=== PATIENT | male | born 1960 | race Caucasian/White ===

== ENCOUNTER 2018-03-31 13:34 | Emergency (ER) | payer OTHER ==
[~2018-03-31] VITALS: Ht 170.1 cm; Wt 158.8 kg
[~2018-03-31 13:34] MED LIST: CIPRO500 MG PO; DO NOT PROFILE T1 EA DEN; Flagyl500 M1 PO; GLUCOSAMINE & C1 CA2 PO; NEURONTIN300 MG PO
[2018-03-31] MEDS ORDERED: POLYSPORIN OINT15 GM T (13:43)
== END 2018-03-31 14:15 | disposition home or self-care (01) ==
LOC: ED 13:34
DX: T23.271A Burn of second degree of right wrist, initial encounter (principal); Z79.899 Other long term (current) drug therapy; X16.XXXA Contact with hot heating appliances, radiators and pipes, initial encounter; Y93.89 Activity, other specified; Y92.89 Other specified places as the place of occurrence of the external cause; Y99.8 Other external cause status

== ENCOUNTER 2018-05-08 17:24 | Inpatient (IN) | payer OTHER ==
[~2018-05-08] VITALS: Ht 170.2 cm; Wt 155.7 kg
--- NOTE | ~2018-05-08 | EKG ---
[place], [place] ELECTROCARDIOGRAM REPORT NAME: SHADIA KENT UNIT #: [id number] ROOM: 512 DOCTOR: JOSE DRAFT REPORT BIRTHDATE: [birth year] [facility] Test Date: 2018-05-08 Test Time: 17:33:54 Pat Name: SHADIA KENT Department: Room: 512 Gender: M [employer] Engineer: BRANDEN : 1960 Requested By: JESSICA BETANCOURT Order Number: [id number] Reading MD: Richie Velez MD Measurements Intervals [place] Rate: 90 P: 4 WY: 154 QRS: 18 QRSD: 93 T: 53 QT: 362 QTc: 443 Interpretive Statements Sinus rhythm Electronically Signed On 05-09-2018 7:53:39 PST by Richie Velez MD CM:EKGRPT:ELECTROCARDIOGRAM REPORT [id number] JESSICA GARCIA DRAFT REPORT JESSICA BETANCOURT MD
[~2018-05-08 17:24] MED LIST changes: +POLYSPORIN OINT15 GM T
[2018-05-08 17:28] VITALS: BP 188/110
[2018-05-08 17:59] LABS: BASO % 0.4 % (0.0-1.0); EOS # 0.2 10*3/uL (0.0-0.4); EOS % 1.9 % (1.0-4.0); HEMATOCRIT 58.5 % (42.0-52.0); HEMOGLOBIN 18.5 g/dl (14.0-18.0); LYMPH # 1.8 10*3/uL (1.3-4.4); LYMPH % 17.8 % (27.0-41.0); MEAN CELL VOLUME 89.7 fl (80.0-94.0); MEAN CORPUSCULAR HGB 28.4 pg (27.0-31.0); MEAN CORPUSCULAR HGB CONC 31.6 g/dl (33.0-37.0); MEAN PLATELET VOLUME 10.3 fl (9.6-12.3); MONO # 1.1 10*3/uL (0.1-1.0); MONO % 10.8 % (3.0-9.0); NEUT # 7.1 10*3/uL (2.3-7.9); NEUT % 68.7 % (47.0-73.0); PLATELET COUNT AUTOMATED 267 10*3/uL (130-400); RED BLOOD COUNT 6.52 10*6/uL (4.50-5.90); RED CELL DISTRI WIDTH 13.8 % (0-14.5); WHITE BLOOD COUNT 10.3 10*3/uL (4.8-10.8)
[2018-05-08 18:11] LABS: ALBUMIN 3.3 gm/dl (3.1-4.5); ALKALINE PHOSPHATASE 115 U/L (45-117); BUN 10 mg/dl (7-24); CHLORIDE 103 mmol/L (98-107); CREATININE 0.93 mg/dL (0.70-1.30); POTASSIUM 4.2 mmol/L (3.5-5.1); SGOT/AST 13 IU/L (3-35); SGPT/ALT 32 U/L (12-78); SODIUM 140 mmol/L (136-145); TOTAL PROTEIN 7.5 gm/dL (6.4-8.2)
[2018-05-08 18:16] LABS: TROPONIN I < 0.015 ng/ml (<0.045)
[2018-05-08 18:35] LABS: ACT PARTIAL THROMBO TIME 22.5 SECONDS (20.8-31.5); INTERNATIONAL NORM RATIO 0.9 (2.0-3.5)
[2018-05-08 18:39] VITALS: BP 175/96
[2018-05-08 19:31] LABS: BILIRUBIN NEGATIVE (NEGATIVE); BLOOD NEGATIVE (NEGATIVE); CLARITY CLEAR (CLEAR); COLOR YELLOW (YELLOW); GLUCOSE NEGATIVE (NEGATIVE); KETONE NEGATIVE (NEGATIVE); LEUKO ESTERASE NEGATIVE (NEGATIVE); NITRITE NEGATIVE (NEGATIVE); PH 6.5 (5.0-9.0)
[2018-05-08 19:48] LABS: BACTERIA TRACE; RBC 0-2 rbc/hpf (0-2); WBC 0-2 wbc/hpf (0-5)
[2018-05-08 20:00] VITALS: BP 186/102
[2018-05-08 20:26] LABS: ABG BASE EXCESS 3.7 mmol/L (-2.0-2.0); ABG HCO3 29.5 mmol/l (22-26); ARTERIAL BLOOD GAS PCO2 51.3 mmHg (35-45); ARTERIAL BLOOD GAS PH 7.382 (7.35-7.45); ARTERIAL BLOOD GAS PO2 77.4 mmHg (80-90)
[2018-05-09] VITALS: BP 178/100
[2018-05-09 06:34] LABS: BASO % 0.2 % (0.0-1.0); HEMATOCRIT 59.7 % (42.0-52.0); HEMOGLOBIN 18.4 g/dl (14.0-18.0); LYMPH # 0.9 10*3/uL (1.3-4.4); LYMPH % 8.1 % (27.0-41.0); MEAN CELL VOLUME 91.6 fl (80.0-94.0); MEAN CORPUSCULAR HGB 28.2 pg (27.0-31.0); MEAN CORPUSCULAR HGB CONC 30.8 g/dl (33.0-37.0); MEAN PLATELET VOLUME 10.2 fl (9.6-12.3); MONO # 0.2 10*3/uL (0.1-1.0); MONO % 1.8 % (3.0-9.0); NEUT # 10.2 10*3/uL (2.3-7.9); NEUT % 89.4 % (47.0-73.0); PLATELET COUNT AUTOMATED 265 10*3/uL (130-400); RED BLOOD COUNT 6.52 10*6/uL (4.50-5.90); RED CELL DISTRI WIDTH 13.9 % (0-14.5); WHITE BLOOD COUNT 11.4 10*3/uL (4.8-10.8)
[2018-05-09 06:58] LABS: ALKALINE PHOSPHATASE 111 U/L (45-117); BUN 10 mg/dl (7-24); CHLORIDE 99 mmol/L (98-107); CHOLESTEROL 186 mg/dL (<200); CREATININE 1.01 mg/dL (0.70-1.30); HDL CHOLESTEROL 34 mg/dl (40-60); LDL CHOLESTEROL 135 mg/dL (9-159); PHOSPHOROUS 3.4 mg/dL (2.5-4.9); POTASSIUM 4.6 mmol/L (3.5-5.1); SGOT/AST 13 IU/L (3-35); SGPT/ALT 32 U/L (12-78); SODIUM 137 mmol/L (136-145); TOTAL PROTEIN 7.6 gm/dL (6.4-8.2); TRIGLYCERIDES 86 mg/dl (<150); VLDL CHOLESTEROL 17 mg/dL (6-40)
[2018-05-09 07:03] LABS: THYROID STIM HORMONE (HS) 0.567 uIU/ml (0.358-4.75)
[2018-05-09 08:07] VITALS: BP 148/98
[2018-05-09 08:37] LABS: VITAMIN D, 25-HYDROXY 25.5 ng/mL (30-100)
[2018-05-09 11:36] VITALS: BP 145/73
[2018-05-09 14:19] VITALS: BP 145/73
[2018-05-09 15:55] VITALS: BP 165/81
[2018-05-09 19:11] VITALS: BP 138/60
[2018-05-10] VITALS: BP 129/74
[2018-05-10] MEDS ORDERED: PREDNISONE10 MG PO (10:08)
[2018-05-10] MEDS ORDERED: LISINOPRIL10 M1 PO (10:08)
[2018-05-10] MEDS ORDERED: AVPAK AZITHROM250 MG PO (10:08)
[2018-05-10] MEDS ORDERED: METFORMIN HYDR500 MG PO (10:08)
== END 2018-05-10 11:13 | disposition home or self-care (01) | DRG 871 ==
LOC: ED 17:24 → 5E 18:37 → EDHOLD 18:37 → 5E 18:43
PROVIDERS: Emergency Medicine; Internal Medicine
DX: A41.9 Sepsis, unspecified organism (principal); J18.9 Pneumonia, unspecified organism; J96.01 Acute respiratory failure with hypoxia; E46 Unspecified protein-calorie malnutrition; Z68.43 Body mass index [BMI] 50.0-59.9, adult; I16.0 Hypertensive urgency; Z96.652 Presence of left artificial knee joint; I10 Essential (primary) hypertension; E11.9 Type 2 diabetes mellitus without complications; E55.9 Vitamin D deficiency, unspecified; E66.01 Morbid (severe) obesity due to excess calories; Z80.9 Family history of malignant neoplasm, unspecified

== ENCOUNTER → 2018-06-03 | Outpatient (CLI) | payer OTHER ==
[~2018-06-03] MED LIST changes: +AVPAK AZITHROM250 MG PO; +LISINOPRIL10 M1 PO; +METFORMIN HYDR500 MG PO; +PREDNISONE10 MG PO
== END | disposition home or self-care (01) ==
LOC: RESCLI 02:56
DX: Z09 Encounter for follow-up examination after completed treatment for conditions other than malignant neoplasm (principal); E11.65 Type 2 diabetes mellitus with hyperglycemia; I10 Essential (primary) hypertension; E66.01 Morbid (severe) obesity due to excess calories; Z79.84 Long term (current) use of oral hypoglycemic drugs; Z79.899 Other long term (current) drug therapy; Z88.8 Allergy status to other drugs, medicaments and biological substances

== ENCOUNTER → 2018-11-22 | Outpatient (CLI) | payer OTHER | END | disposition home or self-care (01) | LOC: RESCLI 00:42 | DX: E11.65 Type 2 diabetes mellitus with hyperglycemia (principal); M25.561 Pain in right knee; I10 Essential (primary) hypertension; E66.01 Morbid (severe) obesity due to excess calories; L57.0 Actinic keratosis; B37.2 Candidiasis of skin and nail; Z79.899 Other long term (current) drug therapy ==

== ENCOUNTER → 2019-02-24 | Outpatient (CLI) | payer OTHER | END | disposition home or self-care (01) | LOC: RESCLI 00:52 | DX: E11.65 Type 2 diabetes mellitus with hyperglycemia (principal); E66.01 Morbid (severe) obesity due to excess calories; I12.9 Hypertensive chronic kidney disease with stage 1 through stage 4 chronic kidney disease, or unspecified chronic kidney disease; E11.22 Type 2 diabetes mellitus with diabetic chronic kidney disease; N18.3 Chronic kidney disease, stage 3 (moderate); N52.9 Male erectile dysfunction, unspecified; Z79.899 Other long term (current) drug therapy ==

== ENCOUNTER → 2020-04-09 | Outpatient (CLI) | payer OTHER | END | disposition home or self-care (01) | LOC: COVID19 12:55 | PROVIDERS: ATTEND Family Medicine | DX: Z20.828 Contact with and (suspected) exposure to other viral communicable diseases (principal) ==

== ENCOUNTER → 2024-03-30 | Outpatient (CLI) | payer OTHER | END | disposition home or self-care (01) | LOC: MRI 01:16 | PROVIDERS: ATTEND Orthopaedic Surgery | DX: S32.000A Wedge compression fracture of unspecified lumbar vertebra, initial encounter for closed fracture (principal); M47.816 Spondylosis without myelopathy or radiculopathy, lumbar region; M51.26 Other intervertebral disc displacement, lumbar region; M48.061 Spinal stenosis, lumbar region without neurogenic claudication; M25.78 Osteophyte, vertebrae; M54.9 Dorsalgia, unspecified; X58.XXXA Exposure to other specified factors, initial encounter; Y93.89 Activity, other specified; Y92.89 Other specified places as the place of occurrence of the external cause; Y99.8 Other external cause status ==

== ENCOUNTER 2024-11-11 19:08 | Emergency (ER) | payer OTHER ==
[~2024-11-11] VITALS: Ht 172.7 cm; Wt 136.1 kg
[2024-11-11] MEDS ORDERED: Tdap Vaccine 0.5 ML SYR (Adult Vaccine) IM ONE (19:35)
[2024-11-11] MEDS ORDERED: Gelatin Sponge 1 EACH SPON T ONE (20:05)
[2024-11-11] MEDS ORDERED: CEPHALEXIN500 M1 PO (20:15)
[2024-11-11] MEDS ORDERED: Acetaminophen/Hydrocodone HP 10/325 PO ONE (20:15)
[2024-11-11] MEDS ORDERED: CEPHALEXIN 500 MG CAP PO ONE (20:15)
[2024-11-12] MEDS ORDERED: CEPHALEXIN500 M1 PO (10:28)
== END 2024-11-11 20:18 | disposition home or self-care (01) ==
LOC: ED 19:08
DX: S61.202A Unspecified open wound of right middle finger without damage to nail, initial encounter (principal); Z79.899 Other long term (current) drug therapy; Z98.890 Other specified postprocedural states; Z96.652 Presence of left artificial knee joint; W27.8XXA Contact with other nonpowered hand tool, initial encounter; Y93.89 Activity, other specified; Y92.89 Other specified places as the place of occurrence of the external cause; Y99.8 Other external cause status

== ENCOUNTER 2025-03-20 15:38 | Emergency (ER) | payer OTHER ==
[~2025-03-20] VITALS: Ht 170.1 cm; Wt 136.1 kg
[~2025-03-20 15:38] MED LIST changes: +CEPHALEXIN500 M1 PO
[2025-03-20] MEDS ORDERED: IOHEXOL 300 MG/ML 100 ML VIAL IV ONE (18:15)
[2025-03-20 18:23] LABS: BASO # 0.0 10*3/uL (0.0-0.1); BASO % 0.5 % (0.0-1.0); EOS # 0.1 10*3/uL (0.0-0.4); EOS % 1.2 % (1.0-4.0); MEAN CELL VOLUME 89.3 fl (80.0-94.0); MEAN CORPUSCULAR HGB 29.2 pg (27.0-31.0); MEAN PLATELET VOLUME 10.0 fl (9.6-12.3); MONO # 0.8 10*3/uL (0.1-1.0); MONO % 9.4 % (3.0-9.0); NEUT # 5.3 10*3/uL (2.3-7.9); NEUT % 62.0 % (47.0-73.0); NUCLEATED RED BLOOD CELL 0.0 % (0.0-0.0); NUCLEATED RED BLOOD CELL 0.0 10*3/uL (0.0-0.0); PLATELET COUNT AUTOMATED 242 10*3/uL (130-400); RED CELL DISTRI WIDTH 12.6 % (0-14.5)
[2025-03-20] MEDS ORDERED: IOHEXOL 350 MG/ML 100 ML VIAL IV ONE (18:41)
[2025-03-20] MEDS ORDERED: SODIUM CHLORIDE 0.9% 0 ML IV ONE (18:42)
[2025-03-20 18:54] LABS: BUN 11 mg/dl (9-23); SGPT/ALT 28 U/L (5-49)
== END 2025-03-20 21:36 | disposition home or self-care (01) ==
LOC: ED 15:38
PROVIDERS: Emergency Medicine
DX: K43.9 Ventral hernia without obstruction or gangrene (principal); Z98.890 Other specified postprocedural states; Z96.652 Presence of left artificial knee joint